=== PATIENT | female | born 1990 | race Two or more races ===

== ENCOUNTER 2017-09-07 22:01 | Emergency (ER) | payer MEDICAID ==
[~2017-09-07] VITALS: Ht 157.5 cm; Wt 126.3 kg
[~2017-09-07 22:01] MED LIST: Augmentin; FLUC150T5 PO; OMEP40CA37 PO
[2017-09-07 22:03] VITALS: BP 149/86
[2017-09-07 22:58] LABS: CLARITY,URINE Cloudy (Clear); COLOR,URINE Red (Yellow); GLUCOSE, URINE Negative (Neg); KETONES,URINE Negative (Neg); LEUKOCYTE ESTERASE ,URINE Small (Neg); NITRITES, URINE Negative (Neg); OCCULT BLOOD,URINE Large (Neg); PROTEIN,URINE 30 mg/dl (Neg); URINE HCG NEGATIVE (NEG)
[2017-09-07 23:00] LABS: UA COLLECTION TYPE CLN CATCH MIDSTREAM
[2017-09-07 23:11] LABS: RBC,URINE TNTC /HPF (0-2); WBC,URINE 0-4 /HPF (0-4)
[2017-09-07 23:12] LABS: BACTERIA,URINE FEW /HPF (Neg); MUCUS STRANDS NONE SEEN /LPF (Neg); SQUAMOUS EPITHELIAL CELL,UR NONE SEEN /LPF (FEW)
== END 2017-09-07 23:24 | disposition home or self-care (01) ==
LOC: ER 22:02
DX: N93.8 Other specified abnormal uterine and vaginal bleeding (principal); F14.10 Cocaine abuse, uncomplicated; Z87.440 Personal history of urinary (tract) infections; Z88.0 Allergy status to penicillin; Z79.899 Other long term (current) drug therapy
CPT/HCPCS: 81001; 81025; 87088; 99284

== ENCOUNTER 2017-10-06 22:54 | Emergency (ER) | payer MEDICAID | END 2017-10-06 23:12 | disposition left against medical advice (07) | LOC: ER 22:54 | DX: R10.2 Pelvic and perineal pain (principal); Z53.21 Procedure and treatment not carried out due to patient leaving prior to being seen by health care provider ==

== ENCOUNTER 2017-11-13 13:41 | Emergency (ER) | payer MEDICAID ==
[~2017-11-13] VITALS: Ht 157.5 cm; Wt 113.9 kg
[2017-11-13 14:13] LABS: CLARITY,URINE Clear (Clear); COLOR,URINE Yellow (Yellow); GLUCOSE, URINE Negative (Neg); KETONES,URINE Negative (Neg); LEUKOCYTE ESTERASE ,URINE Negative (Neg); NITRITES, URINE Negative (Neg); OCCULT BLOOD,URINE Moderate (Neg); PROTEIN,URINE Negative (Neg)
[2017-11-13 14:16] LABS: UA COLLECTION TYPE CLN CATCH MIDSTREAM
[2017-11-13 14:18] LABS: BACTERIA,URINE FEW /HPF (Neg); MUCUS STRANDS FEW /LPF (Neg); SQUAMOUS EPITHELIAL CELL,UR FEW /LPF (FEW); WBC,URINE 0-4 /HPF (0-4)
[2017-11-13 16:38] LABS: URINE HCG NEGATIVE (NEG)
[2017-11-13 16:41] VITALS: BP 145/76
== END 2017-11-13 16:42 | disposition home or self-care (01) ==
LOC: ER 13:42
DX: M54.9 Dorsalgia, unspecified (principal); F14.10 Cocaine abuse, uncomplicated; Z88.1 Allergy status to other antibiotic agents; Z79.899 Other long term (current) drug therapy
CPT/HCPCS: 81001; 81025; 99284

== ENCOUNTER 2017-12-02 09:36 | Emergency (ER) | payer MEDICAID ==
[~2017-12-02] VITALS: Ht 160 cm; Wt 111.0 kg
[2017-12-02 10:26] LABS: CLARITY,URINE CLOUDY (Clear); COLOR,URINE YELLOW (Yellow); GLUCOSE, URINE NEGATIVE (Neg); KETONES,URINE NEGATIVE (Neg); LEUKOCYTE ESTERASE ,URINE LARGE (Neg); NITRITES, URINE NEGATIVE (Neg); OCCULT BLOOD,URINE NEGATIVE (Neg); PROTEIN,URINE NEGATIVE (Neg); UA COLLECTION TYPE CLN CATCH MIDSTREAM; UROBILINOGEN,URINE 0.2 E.U/dL (0.2-1.0)
[2017-12-02 10:27] LABS: URINE HCG NEGATIVE (NEG)
[2017-12-02 10:32] LABS: BACTERIA,URINE 2+ /HPF (Neg); MUCUS STRANDS MODERATE /LPF (Neg); SQUAMOUS EPITHELIAL CELL,UR MANY /LPF (FEW)
[2017-12-02 10:33] LABS: RBC,URINE 0-2 /HPF (0-2); WBC,URINE 20-30 /HPF (0-4)
[2017-12-02 11:41] LABS: HCG SERUM QL NEGATIVE
[2017-12-02 11:46] VITALS: BP 122/70
== END 2017-12-02 11:59 | disposition home or self-care (01) ==
LOC: ER 09:36
DX: R42 Dizziness and giddiness (principal); R10.30 Lower abdominal pain, unspecified; Z88.1 Allergy status to other antibiotic agents; Z88.8 Allergy status to other drugs, medicaments and biological substances
CPT/HCPCS: 36415; 81001; 81025; 84703; 93005; 99285

== ENCOUNTER → 2017-12-28 | Emergency (ER) | payer MEDICAID ==
[~2017-12-28] VITALS: Ht 157.5 cm; Wt 120.0 kg
[2017-12-28 20:48] VITALS: BP 109/47
[2017-12-28 21:20] LABS: CLARITY,URINE SLIGHTLY CLOUDY (Clear); COLOR,URINE YELLOW (Yellow); GLUCOSE, URINE NEGATIVE (Neg); KETONES,URINE NEGATIVE (Neg); LEUKOCYTE ESTERASE ,URINE NEGATIVE (Neg); NITRITES, URINE NEGATIVE (Neg); OCCULT BLOOD,URINE NEGATIVE (Neg); PROTEIN,URINE NEGATIVE (Neg); UA COLLECTION TYPE CLN CATCH MIDSTREAM; UROBILINOGEN,URINE 0.2 E.U/dL (0.2-1.0)
[2017-12-28 21:21] LABS: URINE HCG NEGATIVE (NEG)
[2017-12-28 21:26] LABS: MUCUS STRANDS MODERATE /LPF (Neg); SQUAMOUS EPITHELIAL CELL,UR MODERATE /LPF (FEW)
[2017-12-28 21:27] LABS: BACTERIA,URINE FEW /HPF (Neg); RBC,URINE 0-2 /HPF (0-2); WBC,URINE 0-4 /HPF (0-4)
== END | disposition home or self-care (01) ==
LOC: ER 20:40
DX: R35.0 Frequency of micturition (principal); R10.32 Left lower quadrant pain; F14.10 Cocaine abuse, uncomplicated; Z88.8 Allergy status to other drugs, medicaments and biological substances; Z79.899 Other long term (current) drug therapy
CPT/HCPCS: 81001; 81025; 99284

== ENCOUNTER 2018-04-10 18:39 | Emergency (ER) | payer MEDICAID ==
[~2018-04-10] VITALS: Ht 157.5 cm; Wt 120.0 kg
[2018-04-10 18:47] VITALS: BP 147/87
[2018-04-10] MEDS ORDERED: TRAM50TA2 PO (18:52)
[2018-04-10] MEDS ORDERED: IBUP-1984 PO (18:52)
[2018-04-10] MEDS ORDERED: AMOX-580 PO (18:52)
[2018-04-10] MEDS ORDERED: PENI500T2 PO (21:52)
[2018-04-10] MEDS ORDERED: METH4TAB3 PO (21:52)
== END 2018-04-10 22:02 | disposition home or self-care (01) ==
LOC: ER 18:39
DX: K11.20 Sialoadenitis, unspecified (principal); F14.10 Cocaine abuse, uncomplicated; Z88.0 Allergy status to penicillin; Z88.8 Allergy status to other drugs, medicaments and biological substances; Z79.899 Other long term (current) drug therapy
CPT/HCPCS: 99283

== ENCOUNTER 2018-04-28 20:53 | Emergency (ER) | payer MEDICAID ==
[~2018-04-28] VITALS: Ht 157.5 cm; Wt 109.0 kg
[~2018-04-28 20:53] MED LIST changes: +AMOX-580 PO; -Augmentin; -FLUC150T5 PO; +IBUP-1984 PO; +METH4TAB3 PO; +PENI500T2 PO; +TRAM50TA2 PO
[2018-04-28 21:05] VITALS: BP 159/95
[2018-04-28] MEDS ORDERED: DICL50TA8 PO (21:25)
[2018-04-28] MEDS ORDERED: HYDR-3965 PO (21:25)
[2018-04-28] MEDS ORDERED: AMOX500C2 PO (21:25)
== END 2018-04-28 21:40 | disposition home or self-care (01) ==
LOC: ER 20:54
DX: K08.89 Other specified disorders of teeth and supporting structures (principal); F14.90 Cocaine use, unspecified, uncomplicated; Z88.1 Allergy status to other antibiotic agents; Z88.8 Allergy status to other drugs, medicaments and biological substances; Z79.899 Other long term (current) drug therapy
CPT/HCPCS: 99283

== ENCOUNTER 2018-10-05 20:46 | Emergency (ER) | payer MEDICAID ==
[~2018-10-05] VITALS: Ht 157.5 cm; Wt 128.1 kg
[~2018-10-05 20:46] MED LIST changes: +DICL50TA8 PO; +MICO15CR9 VG; -PENI500T2 PO
[2018-10-05 20:58] VITALS: BP 154/90
[2018-10-05] MEDS ORDERED: MONVCR VG (21:48)
[2018-10-05] MEDS ORDERED: PENI250T2 PO (21:48)
== END 2018-10-05 21:56 | disposition home or self-care (01) ==
LOC: ER 20:47
DX: O99.611 Diseases of the digestive system complicating pregnancy, first trimester (principal); K04.7 Periapical abscess without sinus; F14.90 Cocaine use, unspecified, uncomplicated; Z88.1 Allergy status to other antibiotic agents; Z79.899 Other long term (current) drug therapy; Z3A.12 12 weeks gestation of pregnancy
CPT/HCPCS: 99283

== ENCOUNTER 2019-06-29 02:02 | Emergency (ER) | payer MEDICAID ==
[~2019-06-29] VITALS: Ht 157.5 cm; Wt 124.7 kg
[~2019-06-29 02:02] MED LIST changes: +OMEP40CA13 PO; -OMEP40CA37 PO
[2019-06-29 02:07] VITALS: BP 128/85
[2019-06-29] MEDS ORDERED: CEPH250T PO (02:50)
[2019-06-29] MEDS ORDERED: IBUP-1984 PO (02:50)
== END 2019-06-29 03:08 | disposition home or self-care (01) ==
LOC: ER 02:02
DX: L60.0 Ingrowing nail (principal); F14.90 Cocaine use, unspecified, uncomplicated; Z88.1 Allergy status to other antibiotic agents; Z79.2 Long term (current) use of antibiotics; Z79.899 Other long term (current) drug therapy
CPT/HCPCS: 99283

== ENCOUNTER 2019-08-12 12:32 | Emergency (ER) | payer MEDICAID ==
[~2019-08-12] VITALS: Ht 157.5 cm; Wt 128.0 kg
[2019-08-12 12:37] VITALS: BP 155/94
[2019-08-12] MEDS ORDERED: PENI500T2 PO (13:03)
--- NOTE | 2019-08-12 13:04 | NUR ---
PATIENT PROVIDED LIST OF DENTISTS THAT TAKE MEDICAL BECAUSE HER DENTAL APPOINTMETN IS IN OCTOBER
== END 2019-08-12 13:20 | disposition home or self-care (01) ==
LOC: ER 12:33
DX: K04.7 Periapical abscess without sinus (principal); F14.90 Cocaine use, unspecified, uncomplicated; Z88.1 Allergy status to other antibiotic agents; Z88.8 Allergy status to other drugs, medicaments and biological substances; Z79.2 Long term (current) use of antibiotics; Z79.899 Other long term (current) drug therapy
CPT/HCPCS: 41800; 99283

== ENCOUNTER 2020-06-22 16:39 | Emergency (ER) | payer MEDICAID ==
[~2020-06-22] VITALS: Ht 157.5 cm; Wt 121.4 kg
[2020-06-22 16:54] VITALS: BP 151/105
[2020-06-22] MEDS ORDERED: ALBU8HFA PO (17:52)
[2020-06-22] MEDS ORDERED: GUAI120L55 PO (17:52)
== END 2020-06-22 18:14 | disposition home or self-care (01) ==
LOC: ER 16:39
DX: U07.1 COVID-19 (principal); R05 Cough; R50.9 Fever, unspecified; F14.90 Cocaine use, unspecified, uncomplicated; Z87.440 Personal history of urinary (tract) infections; Z72.89 Other problems related to lifestyle; Z88.8 Allergy status to other drugs, medicaments and biological substances; Z79.2 Long term (current) use of antibiotics; Z79.899 Other long term (current) drug therapy
CPT/HCPCS: 99283

== ENCOUNTER 2021-10-08 01:35 | Emergency (ER) | payer MEDICAID ==
[~2021-10-08] VITALS: Ht 157.5 cm; Wt 118.2 kg
[~2021-10-08 01:35] MED LIST changes: +GUAI120L55 PO; -OMEP40CA13 PO; +OMEP40CA21 PO
[2021-10-08] MEDS ORDERED: iohexol 350MG/ML 100ml bottle IV ONE (02:00)
--- NOTE | 2021-10-08 03:10 | NUR ---
IV PLACEMENT AND BLOODWORK DIFFICULT. [address] IV LINE ON PT PT IS A DIFFICULT STICK
[2021-10-08 03:24] LABS: BASOPHILS # (AUTO) 0.1 X10'3 (0-0.2); BASOPHILS % (AUTO) 0.6 % (0-1); EOSINOPHILS # (AUTO) 0.3 X10'3 (0-0.9); EOSINOPHILS % (AUTO) 2.1 % (0-6); HEMATOCRIT 33.7 % (35.0-45.0); HEMOGLOBIN 10.7 g/dl (12.0-16.0); LYMPHOCYTES # (AUTO) 5.8 X10'3 (1.1-4.8); LYMPHOCYTES % (AUTO) 45.6 % (21-51); MEAN CORPUSCULAR HEMOGLOBIN 22.2 PG (27.0-31.0); MEAN CORPUSCULAR HGB CONC 31.6 g/dL (33.0-36.5); MEAN CORPUSCULAR VOLUME 70.3 FL (78-98); MEAN PLATELET VOLUME 7.9 FL (7.4-10.4); MONOCYTES # (AUTO) 0.8 X10'3 (0-0.9); MONOCYTES % (AUTO) 6.6 % (2-12); NEUTROPHILS # (AUTO) 5.7 X10'3 (1.8-7.7); NEUTROPHILS % (AUTO) 45.1 % (42-75); PLATELET COUNT 468 X10'3 (140-440); RED CELL DISTRIBUTION WIDTH 18.6 % (11.5-14.5); WHITE BLOOD COUNT 12.6 X10'3 (4.5-11.0)
[2021-10-08 03:35] LABS: APTT 29 SECONDS (22-32)
[2021-10-08 03:37] LABS: ALANINE AMINOTRANSFERASE 22 U/L (12-78); ALBUMIN 3.3 G/DL (3.4-5.0); ALBUMIN/GLOBULIN RATIO 0.8 (1.1-1.5); ALKALINE PHOSPHATASE 64 IU/L (46-116); ANION GAP 7 (8-16); ASPARTATE AMINO TRANSFERASE 11 U/L (10-37); BILIRUBIN,TOTAL 0.2 MG/DL (0.1-1.0); BLOOD UREA NITROGEN 12 MG/DL (7-18); CALCIUM 8.4 MG/DL (8.5-10.1); CHLORIDE 106 MMOL/L (99-107); CREATININE 0.63 MG/DL (0.40-0.90); GLUCOSE 107 MG/DL (70-104); POTASSIUM 3.9 MMOL/L (3.5-5.1); SODIUM 142 MMOL/L (135-145); TOTAL CARBON DIOXIDE 28.9 MMOL/L (24-32); TOTAL PROTEIN 7.7 G/DL (6.4-8.2); eGFR > 90 ML/MIN
[2021-10-08] MEDS ORDERED: ondansetron 4mg rapidly disintigrating tab PO ONE (04:00)
[2021-10-08] MEDS ORDERED: meclizine 12.5mg tablet PO ONE (04:00)
[2021-10-08] MEDS ORDERED: MECL-226 PO (04:01)
[2021-10-08 04:25] VITALS: BP 146/89
[2021-10-08 04:35] LABS: ANISOCYTOSIS 2+; HYPOCHROMASIA 1+; PLATELET ESTIMATE INCREASED
[2021-10-08 04:36] LABS: MICROCYTOSIS 1+
== END 2021-10-08 04:26 | disposition home or self-care (01) ==
LOC: ER 01:35
DX: H81.10 Benign paroxysmal vertigo, unspecified ear (principal); E04.1 Nontoxic single thyroid nodule; R20.0 Anesthesia of skin; F14.90 Cocaine use, unspecified, uncomplicated; Z87.440 Personal history of urinary (tract) infections; Z72.89 Other problems related to lifestyle; Z88.1 Allergy status to other antibiotic agents; Z88.8 Allergy status to other drugs, medicaments and biological substances; Z79.2 Long term (current) use of antibiotics; Z79.899 Other long term (current) drug therapy
CPT/HCPCS: 36415; 70450; 70496; 70498; 71045; 80053; 84443; 85008; 85025; 85610; 85730; 86885; 86900; 86901; 93005; 99285; J8597; Q9967

== ENCOUNTER 2022-04-29 06:04 | Emergency (ER) | payer MEDICAID ==
[~2022-04-29] VITALS: Ht 157.5 cm; Wt 116.4 kg
[~2022-04-29 06:04] MED LIST changes: +MECL-226 PO
[2022-04-29] MEDS ORDERED: ketorolac trometh. 30mg/ml inj. IV ONE (07:00)
[2022-04-29 07:18] LABS: CLARITY,URINE CLEAR (Clear); COLOR,URINE YELLOW (Yellow); GLUCOSE, URINE NEGATIVE (Neg); KETONES,URINE NEGATIVE (Neg); LEUKOCYTE ESTERASE ,URINE NEGATIVE (Neg); NITRITES, URINE NEGATIVE (Neg); OCCULT BLOOD,URINE SMALL (Neg); PROTEIN,URINE NEGATIVE (Neg); UROBILINOGEN,URINE 0.2 E.U/dL (0.2-1.0)
[2022-04-29 07:21] LABS: UA COLLECTION TYPE CLN CATCH MIDSTREAM; URINE HCG NEGATIVE (NEG)
[2022-04-29 07:33] LABS: BASOPHILS # (AUTO) 0.1 X10'3 (0-0.2); BASOPHILS % (AUTO) 0.5 % (0-1); EOSINOPHILS # (AUTO) 0.2 X10'3 (0-0.9); EOSINOPHILS % (AUTO) 1.7 % (0-6); HEMOGLOBIN 10.7 g/dl (12.0-16.0); LYMPHOCYTES # (AUTO) 4.3 X10'3 (1.1-4.8); LYMPHOCYTES % (AUTO) 30.6 % (21-51); MEAN CORPUSCULAR HEMOGLOBIN 21.4 PG (27.0-31.0); MEAN CORPUSCULAR HGB CONC 31.4 g/dL (33.0-36.5); MEAN CORPUSCULAR VOLUME 68.1 FL (78-98); MEAN PLATELET VOLUME 8.1 FL (7.4-10.4); MONOCYTES # (AUTO) 1.1 X10'3 (0-0.9); MONOCYTES % (AUTO) 8.1 % (2-12); NEUTROPHILS # (AUTO) 8.3 X10'3 (1.8-7.7); NEUTROPHILS % (AUTO) 59.1 % (42-75); PLATELET COUNT 442 X10'3 (140-440); RED CELL DISTRIBUTION WIDTH 17.7 % (11.5-14.5)
[2022-04-29 07:36] LABS: SQUAMOUS EPITHELIAL CELL,UR MANY /LPF (FEW)
[2022-04-29 07:37] LABS: MUCUS STRANDS MODERATE /LPF (Neg)
[2022-04-29 07:38] LABS: BACTERIA,URINE 1+ /HPF (Neg)
[2022-04-29 07:40] LABS: RBC,URINE 0-2 /HPF (0-2); WBC,URINE 0-4 /HPF (0-4)
[2022-04-29 07:53] LABS: ALANINE AMINOTRANSFERASE 12 U/L (12-78); ALBUMIN 2.7 G/DL (3.4-5.0); ALBUMIN/GLOBULIN RATIO 0.6 (1.1-1.5); ALKALINE PHOSPHATASE 57 IU/L (46-116); ANION GAP 10 (8-16); ASPARTATE AMINO TRANSFERASE 10 U/L (10-37); BILIRUBIN,TOTAL 0.3 MG/DL (0.1-1.0); BLOOD UREA NITROGEN 7 MG/DL (7-18); BUN/CREATININE RATIO 10.9 (6.6-38.0); CALCIUM 8.2 MG/DL (8.5-10.1); CHLORIDE 106 MMOL/L (99-107); CREATININE 0.64 MG/DL (0.40-0.90); GLUCOSE 103 MG/DL (70-104); LIPASE 69 U/L (73-393); POTASSIUM 3.9 MMOL/L (3.5-5.1); SODIUM 139 MMOL/L (135-145); TOTAL CARBON DIOXIDE 23.3 MMOL/L (24-32); TOTAL PROTEIN 7.6 G/DL (6.4-8.2); eGFR > 90 ML/MIN
[2022-04-29 07:56] LABS: PLATELET ESTIMATE INCREASED
[2022-04-29 07:57] LABS: ANISOCYTOSIS 1+; MICROCYTOSIS 2+
[2022-04-29] MEDS ORDERED: HYDR-3972 PO (10:23)
[2022-04-29 10:41] VITALS: BP 141/83
== END 2022-04-29 10:43 | disposition home or self-care (01) ==
LOC: ER 06:05
DX: D25.9 Leiomyoma of uterus, unspecified (principal); F14.10 Cocaine abuse, uncomplicated; Z88.8 Allergy status to other drugs, medicaments and biological substances
CPT/HCPCS: 74176; 76830; 76856; 80053; 81001; 81025; 83690; 85008; 85025; 93976; 96374; 99284; J1885

== ENCOUNTER 2023-09-23 09:04 | Emergency (ER) | payer MEDICAID ==
[~2023-09-23] VITALS: Ht 157.5 cm; Wt 118.7 kg
[~2023-09-23 09:04] MED LIST changes: +ALBU6.7H14 INH; +DEXA6TAB PO
[2023-09-23 09:05] VITALS: BP 130/98; PULSE 94; TEMP 99; O2SAT 97
[2023-09-23 10:30] VITALS: RESP 18
== END 2023-09-23 11:35 | disposition left against medical advice (07) ==
LOC: ER 09:04
DX: R05.9 Cough, unspecified (principal); Z20.822 Contact with and (suspected) exposure to COVID-19; Z53.21 Procedure and treatment not carried out due to patient leaving prior to being seen by health care provider
CPT/HCPCS: 36415; 71045; 87502; 87503; 87811; 99281; 99284

== ENCOUNTER 2024-05-09 09:04 | Emergency (ER) | payer MEDICAID ==
[~2024-05-09] VITALS: Ht 157.5 cm; Wt 128.0 kg
[2024-05-09 09:07] VITALS: TEMP 98.3
[2024-05-09 11:00] VITALS: BP 161/99; PULSE 99; RESP 16; O2SAT 99
== END 2024-05-09 11:01 | disposition home or self-care (01) ==
LOC: ER 09:04
DX: U07.1 COVID-19 (principal); J22 Unspecified acute lower respiratory infection; R05.9 Cough, unspecified; F14.90 Cocaine use, unspecified, uncomplicated; Z88.8 Allergy status to other drugs, medicaments and biological substances; Z79.2 Long term (current) use of antibiotics; Z79.1 Long term (current) use of non-steroidal anti-inflammatories (NSAID); Z79.899 Other long term (current) drug therapy; Z79.52 Long term (current) use of systemic steroids; Z98.890 Other specified postprocedural states; Z87.442 Personal history of urinary calculi; Z72.89 Other problems related to lifestyle
CPT/HCPCS: 99281

== ENCOUNTER 2025-03-14 17:19 | Emergency (ER) | payer MEDICAID ==
[~2025-03-14] VITALS: Ht 157.5 cm; Wt 119.5 kg
[2025-03-14 18:22] LABS: MEAN PLATELET VOLUME 6.8 FL (7.4-10.4); RED CELL DISTRIBUTION WIDTH 18.5 % (11.5-14.5)
[2025-03-14 18:51] LABS: CREATININE 0.76 MG/DL (0.40-0.90); TOTAL CARBON DIOXIDE 24.5 MMOL/L (24-32); eCRCL 82 ML/MIN; eGFR > 90 ML/MIN
--- NOTE | 2025-03-14 19:00 | Physician Documentation ---
History of Present Illness Chief Complaint: Post-operative complication Stated Complaint: POST OP COMPLICATIONS Time Seen by MD: 18:58 Primary Medical Doctor: RUSSELL TIMMONS Mode of Arrival: POV HPI Patient presents to the emergency room with postoperative pain x2 weeks. She had a hysterectomy secondary to a fibroid excessive bleeding. History of anemia. She has been told she needs take iron but does not. She reports no bleeding since her surgery and states that she has had no fevers but it has had some chills. She spoke with her doctor in told her to go be evaluated as she went to urgent care who referred her to us. Reports regular bowel movements and urination. No nausea or vomiting Medication Reconciliation Allergies: Coded Allergies: acetaminophen (Unverified Allergy, Unknown, 03/14/25) oxycodone (Unverified Allergy, Unknown, 03/14/25) piperacillin (Verified Adverse Reaction, Mild, LIP TINGLING, POSSIBLE LIP SWELLING, HAND TINGLING, 03/14/25) tazobactam (Verified Adverse Reaction, Mild, LIP TINGLING, POSSIBLE LIP SWELLING, HAND TINGLING, 03/14/25) Scheduled Amox Tr/Potassium Clavulanate 875/125 MG (Augmentin 875/125 MG), 1 TAB PO TID, (Reported) Dexamethasone (Dexamethasone), 1 TAB PO DAILY Ibuprofen* (Motrin*), 800 MG PO Q6H, (Reported) Meclizine HCl (Meclizine HCl), 1-2 TAB PO Q8H Methylprednisolone (Medrol), 1 DOSPAK PO UD Miconazole Nitrate (Monistat 3), 15 GM VG ONCE Omeprazole (Prilosec), 1 CAP PO DAILY Tramadol HCl (Tramadol HCl), 1 TABLET PO Q6H, (Reported) Scheduled PRN Albuterol Sulfate (Proventil Hfa), 2 PUFFS INH Q6H PRN for wheeze Diclofenac Sodium (Diclofenac Sodium), 1 TAB PO Q12H PRN for pain Guaifenesin/Codeine Phosphate (Codeine-Guaifen 10-100 mg/5 ml), 10 ML PO Q6H PRN PRN for cough and congestion Past Medical History Past Medical History: *ENT*, *GI/HEPATOBILIARY*, Cholelithiasis, Kidney Stones, UTI Past Surgical History: Alcohol Use: Occasionally Drug Use: cocaine Lives with: Family Lives In: Home Occupation: employed Review of Systems ROS All review of systems negative except as per HPI Physical Exam Vital Signs: Temperature: 97.9, Source: Temporal, Heart Rate: 66, Respiratory Rate: 19, BP: 176/81, Pulse Oximetry: 97, Weight: 119.550 Oxygen Flow Rate: 0 General Appearance General: Patient is awake, alert, oriented x4 in no acute distress Head: Normocephalic and atraumatic. Eyes: Conjunctival normal. EOMI. PERRL. ENT: Mucous membranes moist. Neck: Supple, trachea is midline. Chest: Clear to auscultation bilaterally without rales, rhonchi, or wheezes. There is no accessory muscle use or retractions. Cardiac: RRR without murmurs, gallops, or rubs. Abd: Soft, nondistended, mild tenderness to palpation to left incision site. Incision site appears well healing without erythema Progress Results/Orders Results/Orders Vital Signs 03/14/25 03/14/25 03/14/25 17:38 18:47 18:50 Temp 97.9 Pulse 101 66 Resp 18 15 19 B/P (MAP) 155/93 176/81 (112) Pulse Ox 100 97 O2 Flow Rate 0 Laboratory Tests Test 03/14/25 18:13 White Blood Count 12.3 H Red Blood Count 3.69 L Hemoglobin 7.0 *L Hematocrit 23.2 L Mean Corpuscular Volume 63.0 L Mean Corpuscular Hemoglobin 19.1 L Mean Corpuscular Hemoglobin Concent 30.4 L Red Cell Distribution Width 18.5 H Platelet Count 758 H Mean Platelet Volume 6.8 L Neutrophils (%) (Auto) 62.7 Lymphocytes (%) (Auto) 26.4 Monocytes (%) (Auto) 7.8 Eosinophils (%) (Auto) 2.4 Basophils (%) (Auto) 0.7 Neutrophils # (Auto) 7.7 Lymphocytes # (Auto) 3.2 Monocytes # (Auto) 1.0 H Eosinophils # (Auto) 0.3 Basophils # (Auto) 0.1 CBC Comment Sodium Level 142 Potassium Level 3.8 Chloride Level 108 H Carbon Dioxide Level 24.5 Anion Gap 10 Blood Urea Nitrogen 11 Creatinine 0.76 Estimated GFR/1.73 m2 > 90 BUN/Creatinine Ratio 14.5 Glucose Level 106 H Calcium Level 8.4 L Total Bilirubin 0.7 Aspartate Amino Transf (AST/SGOT) 312 H Alanine Aminotransferase (ALT/SGPT) 463 H Alkaline Phosphatase 285 H Total Protein 8.1 Albumin 3.1 L Globulin 5.0 H Albumin/Globulin Ratio 0.6 L Lipase 58 Chemistry Comments Medical Decision Making Findings Upon re-evaluation patient appears comfortable in his smiling cooperative in conversation. Had long discussion regarding patient's anemia. Attempts at obtaining patient's labs from other facilities have failed. Given patient's mean cell volume and reported history of anemia noncompliance with iron supplementation he has a feeling that her anemia secondary to iron deficiency and does not represent acute bleed. That being said the absolute necessity to follow up within the next few days regarding re-evaluation of her blood level was discussed and she has acknowledged with the need to do this. Also been instructed to return for weakness, black stools or passing out. I will begin iron supplementation on her. CT scan is negative for nancy infection/bleeds. Likely secondary to postoperative changes. No fevers and physical exam is reassuring. I did discuss with the possibility of evolving infectious process and reviewed ER precautions regarding fevers or worsening of symptoms. Differential Dx:Considerations: Include: Aortic dissection, Appendicitis, Bowel obstruction, Constipation, GI hemorrhage, Urinary tract infection Departure Disposition: HOME / SELF CARE / HOMELESS Impression: Primary Impression: Microcytic anemia Additional Impression: Abdominal pain Condition: Fair Discharge Instructions: Anemia Additional Instructions: You have significantly low blood level almost needing transfusion. UR to call your doctor tomorrow for re-evaluation and to recheck labs, in the meantime we will begin iron supplementation on you. Return to the emergency room for any fevers or abnormal bleeding weakness or passing out. Return for any black stools. Your CT scan did not show any nancy infections today Referrals: NO PRIMARY CARE PROVIDER (PCP) Prescriptions Ferrous Sulfate (Iron) 325 Mg (65 Mg Iron) Tablet 1 TAB PO Q12H for 30 Days, #60 TAB 0 Refills Prov: MISAEL FRANCISCO MD 03/14/25 Education Educated: Patient Educated regarding: diagnosis, treatment, need for follow up Signature Scribe Signature: No scribe Attestation: The note accurately reflects work and decisions made by me.Misael Francisco MD 03/14/25 21:21 MISAEL FRANCISCO MD Mar 14, 2025 19:00
[2025-03-14 19:07] LABS: PLATELET ESTIMATE INCREASED
[2025-03-14] MEDS ORDERED: iohexol 300mg/ml 100ml inj. ONE (19:49)
--- NOTE | 2025-03-14 20:30 | RADIOLOGY REPORT ---
Exam: CT CT ABDOMEN PELVIS W/ IV CONTRAST History: pain s/p surgery, abdominal pain Comparison Study: CT ABDOMEN PELVIS on DOS: 04/29/22 TECHNIQUE: A digital division merchandise manager image was obtained. During the uneventful, intravenous administration of c ontrast material, multislice data acquisition was obtained through the abdomen and pelvis. The data s et was subsequently reconstructed into multiplanar reformats. RADIATION DOSE: CTDI vol 35.13 mGy. DLP 1905.56 mGy.cm Findings: Liver: Unremarkable. Spleen: Unremarkable. Pancreas: Unremarkable. Gallbladder: Mild gallbladder wall thickening versus edema. Adrenals: Unremarkable Kidneys: Unremarkable. Pelvic Viscera: Per recent clinical history, the patient is status post recent hysterectomy. There is stranding within the pelvis, with a small sterility indeterminate collection within the anterior kei p pelvis measuring 2.8 x 1.3 cm (series 2, image 106). Vasculature: Unremarkable. Retroperitoneum: There are shotty retroperitoneal and borderline pelvic sidewall nodes. Bowel: No bowel obstruction. The appendix is normal. Musculoskeletal: Unremarkable. Soft tissues: Mild stranding within the ventral subcutaneous tissues in the operative region. Lungs: The lung bases are clear. Impression: 1. Status post recent hysterectomy with stranding in the deep and anterior pelvis, possibly postopera tive in etiology though infectious/ inflammatory process cannot be excluded. 2.8 x 1.3 cm sterility i ndeterminate collection within the anterior deep pelvis, further clinical correlation is suggested. 2. Borderline nodes as detailed, possibly reactive in etiology. 3. Additional findings as detailed.
[2025-03-14 21:02] LABS: LEUKOCYTE ESTERASE ,URINE NEGATIVE (Neg); NITRITES, URINE NEGATIVE (Neg); OCCULT BLOOD,URINE NEGATIVE (Neg); UA COLLECTION TYPE CLN CATCH MIDSTREAM
[2025-03-14 21:04] VITALS: TEMP 98.4; O2SAT 98
[2025-03-14 21:07] LABS: MUCUS STRANDS MANY /LPF (Neg); SQUAMOUS EPITHELIAL CELL,UR MANY /LPF (FEW)
[2025-03-14] MEDS ORDERED: FERR-116 PO (21:21)
[2025-03-14 22:07] VITALS: BP 160/86; PULSE 83; RESP 16
== END 2025-03-14 22:24 | disposition home or self-care (01) ==
LOC: ER 17:20
DX: D50.9 Iron deficiency anemia, unspecified (principal); F14.90 Cocaine use, unspecified, uncomplicated; Z88.1 Allergy status to other antibiotic agents; Z88.6 Allergy status to analgesic agent; Z88.5 Allergy status to narcotic agent; Z79.899 Other long term (current) drug therapy; Z87.442 Personal history of urinary calculi; Z72.89 Other problems related to lifestyle
CPT/HCPCS: 36415; 74177; 80053; 81001; 83690; 85008; 85025; 99285; Q9967

== ENCOUNTER 2025-05-07 12:23 | Emergency (ER) | payer MEDICAID ==
[~2025-05-07] VITALS: Ht 154.9 cm; Wt 114.0 kg
[~2025-05-07 12:23] MED LIST changes: +FERR-116 PO
--- NOTE | 2025-05-07 12:40 | Physician Documentation ---
History of Present Illness Chief Complaint: Abdominal Pain Stated Complaint: FEVER/ABDOMINAL PAIN Time Seen by MD: 12:35 Primary Medical Doctor: RUSSELL TIMMONS [facility] This is 35-year-old female who presents to the emergency department reporting symptoms for the last 24 hours that include a fever up to 104, migraine headache, and abdominal pain. She describes the abdominal pain as below her hysterectomy incision, both sides, left much worse than right. Denies nausea or vomiting diarrhea or constipation black or bloody stools. Hysterectomy was reportedly approx 2 months ago. Medication Reconciliation Allergies: Coded Allergies: acetaminophen (Unverified Allergy, Unknown, 03/14/25) oxycodone (Unverified Allergy, Unknown, 03/14/25) piperacillin (Verified Adverse Reaction, Mild, LIP TINGLING, POSSIBLE LIP SWELLING, HAND TINGLING, 03/14/25) tazobactam (Verified Adverse Reaction, Mild, LIP TINGLING, POSSIBLE LIP SWELLING, HAND TINGLING, 03/14/25) Scheduled Amox Tr/Potassium Clavulanate 875/125 MG (Augmentin 875/125 MG), 1 TAB PO TID, (Reported) Cephalexin (Cephalexin), 1 CAP PO Q8H Clotrimazole (Clotrimazole), 1 APPLIC TOP Q8H Dexamethasone (Dexamethasone), 1 TAB PO DAILY Ferrous Sulfate (Iron), 1 TAB PO Q12H Ibuprofen* (Motrin*), 800 MG PO Q6H, (Reported) Meclizine HCl (Meclizine HCl), 1-2 TAB PO Q8H Methylprednisolone (Medrol), 1 DOSPAK PO UD Miconazole Nitrate (Monistat 3), 15 GM VG ONCE Naproxen (Naproxen), 1 TAB PO Q12H Omeprazole (Prilosec), 1 CAP PO DAILY Tramadol HCl (Tramadol HCl), 1 TABLET PO Q6H, (Reported) Scheduled PRN Albuterol Sulfate (Proventil Hfa), 2 PUFFS INH Q6H PRN for wheeze Diclofenac Sodium (Diclofenac Sodium), 1 TAB PO Q12H PRN for pain Guaifenesin/Codeine Phosphate (Codeine-Guaifen 10-100 mg/5 ml), 10 ML PO Q6H PRN PRN for cough and congestion Past Medical History Past Medical History: *ENT*, *GI/HEPATOBILIARY*, Cholelithiasis, Kidney Stones, UTI Past Surgical History: Alcohol Use: Occasionally Drug Use: cocaine Lives with: Family Lives In: Home Occupation: employed Review of Systems ROS As stated above in the HPI, otherwise all systems are reviewed and negative. Physical Exam Physical Exam General: Alert, no apparent distress. Neck: Full range of motion. Respiratory: Lungs clear, no respiratory distress. Chest: No accessory muscle use. Cardiovascular: Regular rate and rhythm, no murmurs. Gastrointestinal: Soft, nontender, nondistended. Bowels sounds present. TTP below hysterectomy incision bilat with erythema and firmness on left. Extremities: Normal range of motion, no deformity. Neurologic: Oriented x4. Psychiatric: Normal mood and affect. Skin: Normal color, warm and dry. No edema, no ecchymosis. Progress EKG/XRAY/CT/US/VASC/MRI CT : Impression [facility] [address] [facility] [address] CAT SCAN Patient: CARI CRUZ Medical Record: [id number] [facility] : 1990, Age: 35 Sex: Female Location: ER Patient Status: [facility] ER Service Date/Time: 05/07/251499 Ordering Physician: LUCY BARROS IMAGING CLERK Exam: CT ABDOMEN PELVIS Exam: CT CT ABDOMEN PELVIS W/ IV CONTRAST History: pain, post hysterectomy, Erythema beneath pannus on left Comparison Study: CT CT ABDOMEN PELVIS W/ IV CONTRAST on DOS: 03/14/25, ULTRASOUND PELVIS on DOS: 04/29/22, CT ABDOMEN PELVIS on DOS: 04/29/22 TECHNIQUE: Multidetector CT of the abdomen and pelvis with IV contrast. Axial, coronal and sagittal multiplanar reformats were obtained from the axial data set by the technologist. Radiation Dose Information: CT Dose: CTDI volume is 36.43 mGy. Dose-length product is 2139.41 mGy*cm FINDINGS: The lung bases are clear. Partially visualized heart is unremarkable. Mild hepatosplenomegaly. Pancreas and Adrenal glands are unremarkable. Gallbladder is mildly distended with questionable minimal pericholecystic edema . No evidence of cholelithiasis or significant gallbladder wall thickening on C T. Kidneys, ureters and urinary bladder unremarkable. Status post hysterectomy. Bilateral ovaries are unremarkable. Interval improvement in the stranding within the pelvis with small residual. Interval resolution of the small fluid collection of the left anterior pelvis. Stomach is unremarkable. Small bowel loops are unremarkable. Appendix is unremarkable. Small to moderate amount of fecal material within the colon. Decompression of the rectum. Tiny fat containing umbilical hernia. Soft tissues are unremarkable. Slightly prominent bilateral inguinal lymph nodes which may be reactive. No evidence of acute osseous abnormalities. IMPRESSION: Status post hysterectomy with interval improvement in the associated pelvic fat stranding with small residual. Hepatosplenomegaly. Questionable minimal pericholecystic edema with no evidence of gallstones or gallbladder wall thickening. Right upper quadrant ultrasound may be considered for further evaluation if clinically indicated. Electronically Signed by:DEBI DUMONT DO Date & Time: 05/07/25 161 Dictated by: DEBI DUMONT DO Dictation date and time: 05/07/25 161 Primary Care Provider: NO PRIMARY CARE PROVIDER cc: LUCY BARROS IMAGING CLERK ~ Medical Decision Making Additional Comments This is a 35-year-old morbidly obese female who presented due to concerns for lower abdominal pain at the site of a previous surgical incision for hysterectomy. On exam, she was found to have erythema to the left pannus. No open areas or discharge. No abscesses were palpable. Due to the out of p roportion pain she was reporting and her risk factor for necrotizing fasciitis of being obese, CT scan was obtained into the direction of attending ED MD Curtis. This did not reveal free air or other concerns indicative of necrotizing fasciitis. In addition, her cellulitis was re-examined after several hours and found to not have spread any further. Her white blood cell count was elevated over 14. She was given ceftriaxone in the ER and will be sent home on Keflex. She is to follow up with her primary care soon, return if worse. Departure Time of Disposition: 16:23 Disposition: 01 HOME / SELF CARE / HOMELESS Impression: Primary Impression: Abdominal wall cellulitis Condition: Stable Discharge Instructions: Cellulitis, Adult Additional Instructions: Cellulitis (skin infection of abdominal wall). Take the antibiotics and use the prescribed cream. See your primary care for recheck soon, within the next 3 days. RETURN IF WORSE. Referrals: NO PRIMARY CARE PROVIDER (PCP) Prescriptions Clotrimazole (Clotrimazole) 1 % Cream..g. 1 APPLIC TOP Q8H for 7 Days, #45 GM 0 Refills apply to affected area(s) Prov: LUCY BARROS NP 05/07/25 Naproxen (Naproxen) 500 Mg Tablet 1 TAB PO Q12H, #20 TAB Prov: LUCY BARROS NP 05/07/25 Cephalexin (Cephalexin) 500 Mg Capsule 1 CAP PO Q8H for 10 Days, #30 CAP Prov: LUCY BARROS NP 05/07/25 Education Educated: Patient Educated regarding: diagnosis, treatment, prognosis, need for follow up Signature Scribe Signature: x Attestation: The note accurately reflects work and decisions made by me.Lucy Arreaga NP 05/07/25 12:40 LUCY BARROS NP May 07, 2025 12:40
[2025-05-07 13:15] LABS: CREATININE 0.54 MG/DL (0.40-0.90); TOTAL CARBON DIOXIDE 25.3 MMOL/L (24-32); eCRCL 115 ML/MIN; eGFR > 90 ML/MIN
[2025-05-07 14:29] LABS: MEAN PLATELET VOLUME 7.8 FL (7.4-10.4)
[2025-05-07] MEDS ORDERED: iohexol 300mg/ml 100ml inj. ONE (15:06)
[2025-05-07 15:07] LABS: RED CELL DISTRIBUTION WIDTH 18.2 % (11.5-14.5)
[2025-05-07 15:32] LABS: PLATELET ESTIMATE INCREASED
[2025-05-07] MEDS: normal saline 1000ml 1,000 ML IV ONE (15:32)
[2025-05-07 15:33] LABS: ELLIPTOCYTES FEW
[2025-05-07] MEDS: ondansetron/PF 4mg/2ml inj IV ONE (15:35)
[2025-05-07] MEDS: morphine 4 MG/ML inj SYRINge IV ONE (15:36)
--- NOTE | 2025-05-07 16:12 | RADIOLOGY REPORT ---
Exam: CT CT ABDOMEN PELVIS W/ IV CONTRAST History: pain, post hysterectomy, Erythema beneath pannus on left Comparison Study: CT CT ABDOMEN PELVIS W/ IV CONTRAST on DOS: 03/14/25, ULTRASOUND PELVIS on DOS: , CT ABDOMEN PELVIS on DOS: 04/29/22 TECHNIQUE: Multidetector CT of the abdomen and pelvis with IV contrast. Axial, coronal and sagittal m ultiplanar reformats were obtained from the axial data set by the technologist. Radiation Dose Information: CT Dose: CTDI volume is 36.43 mGy. Dose-length product is 2139.41 mGy*cm FINDINGS: The lung bases are clear. Partially visualized heart is unremarkable. Mild hepatosplenomegaly. Pancreas and Adrenal glands are unremarkable. Gallbladder is mildly distende d with questionable minimal pericholecystic edema . No evidence of cholelithiasis or significant gal lbladder wall thickening on CT. Kidneys, ureters and urinary bladder unremarkable. Status post hysterectomy. Bilateral ovaries are un remarkable. Interval improvement in the stranding within the pelvis with small residual. Interval res olution of the small fluid collection of the left anterior pelvis. Stomach is unremarkable. Small bowel loops are unremarkable. Appendix is unremarkable. Small to mode rate amount of fecal material within the colon. Decompression of the rectum. Tiny fat containing umbilical hernia. Soft tissues are unremarkable. Slightly prominent bilateral ing uinal lymph nodes which may be reactive. No evidence of acute osseous abnormalities. IMPRESSION: Status post hysterectomy with interval improvement in the associated pelvic fat stranding with small residual. Hepatosplenomegaly. Questionable minimal pericholecystic edema with no evidence of gallstones or gallbladder wall thicken ing. Right upper quadrant ultrasound may be considered for further evaluation if clinically indicate d.
[2025-05-07] MEDS ORDERED: CEPH500C81 PO (16:39)
[2025-05-07] MEDS ORDERED: NAPR-56 PO (16:39)
[2025-05-07] MEDS ORDERED: CLOT30CR19 TOP (16:40)
[2025-05-07] MEDS: CefTRIAXone 2gm/D5W 50ml BAG 50 ML IV ONE (17:01)
[2025-05-07 17:23] LABS: LEUKOCYTE ESTERASE ,URINE NEGATIVE (Neg); NITRITES, URINE NEGATIVE (Neg); OCCULT BLOOD,URINE NEGATIVE (Neg)
[2025-05-07 17:25] LABS: UA COLLECTION TYPE CLN CATCH MIDSTREAM
[2025-05-07 17:34] LABS: SQUAMOUS EPITHELIAL CELL,UR MODERATE /LPF (FEW)
[2025-05-07 17:38] VITALS: BP 148/65; PULSE 79; RESP 18; TEMP 98.4; O2SAT 98
== END 2025-05-07 17:41 | disposition home or self-care (01) ==
LOC: ER 12:25
DX: L03.311 Cellulitis of abdominal wall (principal); F14.90 Cocaine use, unspecified, uncomplicated; Z88.1 Allergy status to other antibiotic agents; Z88.5 Allergy status to narcotic agent; Z87.442 Personal history of urinary calculi; Z90.710 Acquired absence of both cervix and uterus; Z79.899 Other long term (current) drug therapy; Z72.89 Other problems related to lifestyle
CPT/HCPCS: 36415; 74177; 80053; 81001; 83605; 84145; 85008; 85025; 86140; 87040; 96361; 96365; 96375; 99285; J0696; J2270; J2405; J7030; Q9967